=== PATIENT | male | born 1955 | race Caucasian/White ===

== ENCOUNTER 2020-08-16 15:52 | Inpatient (IN) | payer MEDICARE ==
[2020-08-16 16:57] LABS: #Basophils 0.1 thou/uL (0.0-0.2); #Eosinphils 0.3 thou/uL (0.0-0.7); #Lymphocytes 0.8 thou/uL (1.20-3.40); #Monocytes 0.5 thou/uL (0.11-0.59); #Neutrophils 11.2 thou/uL (1.40-6.50); %Basophils 0.5 % (0.0-1.0); %Eosinophils 2.2 % (0.0-10.0); %Lymphocytes 5.9 % (21.0-51.0); %Neutrophils 87.4 % (42.0-75.0); Mean Corpuscular HGB CONC 34.6 g/dL (32.0-36.0); Mean Corpuscular Hemoglobin 32.6 pg (27.0-31.0); Mean Corpuscular Volume 94.1 fL (78.0-98.0); Platelet Count 299 thou/uL (130-400); RBC Distribution Width 12.3 % (11.5-14.5); White Blood Cell (WBC) Count 12.8 thou/uL (4.8-10.8)
[2020-08-16 17:21] LABS: ALT (SGPT) 30 U/L (8-55); AST (SGOT) 26 U/L (5-34); Albumin 4.2 g/dL (3.4-4.8); Alkaline Phosphatase 82 U/L (40-110); Anion Gap 17 mmol/L (10-20); BUN (Urea Nitrogen) 18 mg/dL (8.4-25.7); Bilirubin, Total 1.5 mg/dL (0.2-1.2); Calc. Creatinine Clearance 0 mL/min (70-130); Calcium 8.9 mg/dL (7.8-10.44); Carbon Dioxide 21 mmol/L (23-31); Chloride 107 mmol/L (98-107); Globulin 2.3 g/dL (2.4-3.5); Glucose 163 mg/dL (80-115); Potassium 4.4 mmol/L (3.5-5.1); Protein, Total 6.5 g/dL (5.8-8.1); Sodium 141 mmol/L (136-145)
[2020-08-16] MEDS ORDERED: Dexamethasone 4 MG TAB ONE (20:13)
[2020-08-16] MEDS ORDERED: Dexamethasone 10 MG/ML VIAL ONE (20:17)
[2020-08-16] MEDS ORDERED: cefTRIAXone\\ROCEPHIN 1 GM VIAL ONE (20:33)
[2020-08-16] MEDS ORDERED: Dextrose 50% Abboject 50 ML SYRINGE SLOW IVP PRN (23:32)
[2020-08-16] MEDS ORDERED: Dextrose 5% in Water 1,000 ML IV PRN (23:32)
[2020-08-17 02:21] VITALS: BMI 37.8
[2020-08-17 05:16] LABS: SARS-CoV-2 PCR by NAA Not Detected (NotDetected)
[2020-08-17] MEDS ORDERED: HumaLOG 300 UNITS/3 ML VIAL ONE (07:48)
[2020-08-17] MEDS: HumaLOG 300 UNITS/3 ML VIAL SC PRN ×4 (07:50→20:14)
[2020-08-17] MEDS ORDERED: Alogliptin 6.25 MG TAB PO SCH (09:00)
[2020-08-17] MEDS ORDERED: methylPREDNISolone Sod Succ 40 MG VIAL ONE (10:01)
[2020-08-17] MEDS ORDERED: Enoxaparin Sodium 40 MG/0.4 ML SYRINGE ONE (10:01)
[2020-08-17] MEDS: Enoxaparin Sodium 40 MG/0.4 ML SYRINGE SC SCH (10:09)
[2020-08-17] MEDS: Doxycycline 100 MG CAP PO SCH ×2 (10:09→20:07)
[2020-08-17] MEDS: methylPREDNISolone Sod Succ 40 MG VIAL IVP SCH ×3 (10:14→20:05)
[2020-08-17] MEDS ORDERED: Meclizine HCl 25 MG TAB PO PRN (17:17)
[2020-08-17] MEDS: Mometasone 200 MCG/Formoterol 5 MCG 120 PUFF INHALER INH SCH (17:48)
[2020-08-17] MEDS ORDERED: cefTRIAXone\\ROCEPHIN 1 GM in Sodium Chloride 0.9% 100 ML IVPB SCH (20:00)
[2020-08-17] MEDS: Benzonatate 100 MG CAP PO PRN (20:06)
[2020-08-17] MEDS: Atorvastatin Calcium 20 MG TAB PO SCH (20:07)
[2020-08-17] MEDS: Montelukast Sodium 10 mg Tablet PO SCH (20:07)
[2020-08-17] MEDS: guaiFENesin/DM ER PO SCH (20:07)
[2020-08-18] MEDS: HumaLOG 300 UNITS/3 ML VIAL SC PRN ×4 (04:45→20:26)
[2020-08-18] MEDS: Mometasone 200 MCG/Formoterol 5 MCG 120 PUFF INHALER INH SCH ×2 (07:50→18:37)
[2020-08-18] MEDS: Enoxaparin Sodium 40 MG/0.4 ML SYRINGE SC SCH (09:11)
[2020-08-18] MEDS: Doxycycline 100 MG CAP PO SCH ×2 (09:11→19:53)
[2020-08-18] MEDS: Alogliptin 6.25 MG TAB PO SCH (09:11)
[2020-08-18] MEDS: guaiFENesin/DM ER PO SCH ×2 (09:12→19:53)
[2020-08-18] MEDS: predniSONE 20 MG TAB PO SCH ×2 (10:05→19:53)
[2020-08-18] MEDS ORDERED: Sodium Chloride Nasal 15 GM TUBE EA NARE PRN (11:26)
[2020-08-18] MEDS: Benzonatate 100 MG CAP PO PRN (18:36)
[2020-08-18] MEDS: Atorvastatin Calcium 20 MG TAB PO SCH (19:53)
[2020-08-18] MEDS: Montelukast Sodium 10 mg Tablet PO SCH (19:53)
[2020-08-19] MEDS: HumaLOG 300 UNITS/3 ML VIAL SC PRN ×3 (05:22→16:54)
[2020-08-19] MEDS: Mometasone 200 MCG/Formoterol 5 MCG 120 PUFF INHALER INH SCH ×2 (06:35→19:29)
[2020-08-19] MEDS: predniSONE 20 MG TAB PO SCH ×2 (08:04→20:36)
[2020-08-19] MEDS: guaiFENesin/DM ER PO SCH ×2 (08:04→20:36)
[2020-08-19] MEDS: Alogliptin 6.25 MG TAB PO SCH (08:04)
[2020-08-19] MEDS: Doxycycline 100 MG CAP PO SCH ×2 (08:04→20:36)
[2020-08-19] MEDS: Enoxaparin Sodium 40 MG/0.4 ML SYRINGE SC SCH (08:05)
[2020-08-19] MEDS: Benzonatate 100 MG CAP PO PRN ×2 (16:54→20:55)
[2020-08-19] MEDS: Atorvastatin Calcium 20 MG TAB PO SCH (20:36)
[2020-08-19] MEDS: Montelukast Sodium 10 mg Tablet PO SCH (20:36)
[2020-08-20] MEDS: Benzonatate 100 MG CAP PO PRN ×3 (06:17→22:13)
[2020-08-20] MEDS: HumaLOG 300 UNITS/3 ML VIAL SC PRN ×2 (06:19→17:04)
[2020-08-20] MEDS: Mometasone 200 MCG/Formoterol 5 MCG 120 PUFF INHALER INH SCH ×2 (06:45→18:35)
[2020-08-20 07:08] LABS: #Eosinphils 0.1 thou/uL (0.0-0.7); #Lymphocytes 1.6 thou/uL (1.20-3.40); #Monocytes 1.3 thou/uL (0.11-0.59); #Neutrophils 12.5 thou/uL (1.40-6.50); %Basophils 0.2 % (0.0-1.0); %Eosinophils 0.8 % (0.0-10.0); %Lymphocytes 10.3 % (21.0-51.0); %Monocytes 8.4 % (0.0-10.0); %Neutrophils 80.4 % (42.0-75.0); Hemoglobin 15.9 g/dL (14.0-18.0); Mean Corpuscular Hemoglobin 33.7 pg (27.0-31.0); Mean Corpuscular Volume 96.1 fL (78.0-98.0); Mean Platelet Volume 7.3 fL (7.4-10.4); Platelet Count 262 thou/uL (130-400); Red Blood Cell (RBC) Count 4.74 mill/uL (4.70-6.10); White Blood Cell (WBC) Count 15.5 thou/uL (4.8-10.8)
[2020-08-20 07:30] LABS: Anion Gap 15 mmol/L (10-20); BUN (Urea Nitrogen) 23 mg/dL (8.4-25.7); Calc. Creatinine Clearance 102 mL/min (70-130); Calcium 9.1 mg/dL (7.8-10.44); Carbon Dioxide 24 mmol/L (23-31); Chloride 102 mmol/L (98-107); Glucose 201 mg/dL (80-115); Potassium 3.8 mmol/L (3.5-5.1); Sodium 137 mmol/L (136-145)
[2020-08-20] MEDS: Doxycycline 100 MG CAP PO SCH ×2 (08:58→20:25)
[2020-08-20] MEDS: Enoxaparin Sodium 40 MG/0.4 ML SYRINGE SC SCH (08:58)
[2020-08-20] MEDS: predniSONE 20 MG TAB PO SCH ×2 (08:59→20:22)
[2020-08-20] MEDS: guaiFENesin/DM ER PO SCH ×2 (08:59→20:22)
[2020-08-20] MEDS: Alogliptin 6.25 MG TAB PO SCH (08:59)
[2020-08-20] MEDS: Atorvastatin Calcium 20 MG TAB PO SCH (20:21)
[2020-08-20] MEDS: Montelukast Sodium 10 mg Tablet PO SCH (20:21)
[2020-08-20 20:44] VITALS: TEMP 97.7
[2020-08-21] MEDS: HumaLOG 300 UNITS/3 ML VIAL SC PRN ×2 (06:03→13:15)
[2020-08-21] MEDS: Benzonatate 100 MG CAP PO PRN (06:05)
[2020-08-21] MEDS: Mometasone 200 MCG/Formoterol 5 MCG 120 PUFF INHALER INH SCH (07:36)
[2020-08-21 07:43] VITALS: BP 119/67
[2020-08-21] MEDS: Alogliptin 6.25 MG TAB PO SCH (08:44)
[2020-08-21] MEDS: predniSONE 20 MG TAB PO SCH (08:44)
[2020-08-21] MEDS: Enoxaparin Sodium 40 MG/0.4 ML SYRINGE SC SCH (08:44)
[2020-08-21] MEDS: guaiFENesin/DM ER PO SCH (08:44)
[2020-08-21] MEDS: Doxycycline 100 MG CAP PO SCH (08:44)
[2020-08-21 10:17] LABS: Hemoglobin 15.7 g/dL (14.0-18.0); Mean Corpuscular HGB CONC 34.6 g/dL (32.0-36.0); Mean Corpuscular Hemoglobin 32.6 pg (27.0-31.0); Mean Corpuscular Volume 94.3 fL (78.0-98.0); Mean Platelet Volume 7.5 fL (7.4-10.4); Platelet Count 247 thou/uL (130-400); Red Blood Cell (RBC) Count 4.82 mill/uL (4.70-6.10); White Blood Cell (WBC) Count 15.1 thou/uL (4.8-10.8)
== END 2020-08-21 15:06 | disposition home or self-care (01) | DRG 189 ==
LOC: ERS 15:52 → ERHOLD 20:55 → T4-A 08-17 13:11 → OBSVTOIN 08-17 17:08
PROVIDERS: ADMIT Internal Medicine; ATTEND Internal Medicine
DX: J96.01 Acute respiratory failure with hypoxia (principal); J44.1 Chronic obstructive pulmonary disease with (acute) exacerbation; G47.33 Obstructive sleep apnea (adult) (pediatric); E11.9 Type 2 diabetes mellitus without complications; Z20.822 Contact with and (suspected) exposure to COVID-19; E78.00 Pure hypercholesterolemia, unspecified; M19.90 Unspecified osteoarthritis, unspecified site; F41.9 Anxiety disorder, unspecified; E78.5 Hyperlipidemia, unspecified; R06.89 Other abnormalities of breathing; Z87.891 Personal history of nicotine dependence; Z88.1 Allergy status to other antibiotic agents; Z79.84 Long term (current) use of oral hypoglycemic drugs; Z79.52 Long term (current) use of systemic steroids; Z79.899 Other long term (current) drug therapy
CPT/HCPCS: 36415; 36416; 71045; 80048; 80053; 83880; 84484; 85025; 85027; 87040; 87635; 93005; 94640; 94660; 96372; 96374; 96375; 96376; G0378; J0696; J1100; J1650; J1815; J2920; J3490; J7512; J7620; J8540; U0003; U0005

== ENCOUNTER 2020-10-18 10:17 | Outpatient (CLI) | payer MEDICARE | END 2020-10-18 10:18 | disposition home or self-care (01) | LOC: BICMRI 10:17 | PROVIDERS: ATTEND Orthopaedic Surgery | DX: S83.241A Other tear of medial meniscus, current injury, right knee, initial encounter (principal); M94.261 Chondromalacia, right knee; M71.21 Synovial cyst of popliteal space [Baker], right knee ==

== ENCOUNTER 2020-10-27 11:25 | Emergency (ER) | payer MEDICARE ==
[2020-10-27 12:07] LABS: #Basophils 0.1 thou/uL (0.0-0.2); #Eosinphils 0.7 thou/uL (0.0-0.7); #Lymphocytes 1.4 thou/uL (1.20-3.40); #Monocytes 0.9 thou/uL (0.11-0.59); #Neutrophils 8.3 thou/uL (1.40-6.50); %Lymphocytes 12.6 % (21.0-51.0); %Monocytes 7.9 % (0.0-10.0); %Neutrophils 72.6 % (42.0-75.0); Hemoglobin 15.5 g/dL (14.0-18.0); Mean Corpuscular HGB CONC 33.5 g/dL (32.0-36.0); Mean Corpuscular Hemoglobin 32.2 pg (27.0-31.0); Mean Corpuscular Volume 96.2 fL (78.0-98.0); Mean Platelet Volume 7.4 fL (7.4-10.4); Platelet Count 259 thou/uL (130-400); RBC Distribution Width 11.5 % (11.5-14.5); White Blood Cell (WBC) Count 11.4 thou/uL (4.8-10.8)
[2020-10-27 12:27] LABS: ALT (SGPT) 21 U/L (8-55); AST (SGOT) 17 U/L (5-34); Albumin 4.1 g/dL (3.4-4.8); Alkaline Phosphatase 89 U/L (40-110); Anion Gap 14 mmol/L (10-20); BUN (Urea Nitrogen) 11 mg/dL (8.4-25.7); Bilirubin, Total 1.1 mg/dL (0.2-1.2); Calc. Creatinine Clearance 0 mL/min (70-130); Calcium 9.3 mg/dL (7.8-10.44); Carbon Dioxide 22 mmol/L (23-31); Chloride 106 mmol/L (98-107); Globulin 2.6 g/dL (2.4-3.5); Glucose 143 mg/dL (80-115); Potassium 4.1 mmol/L (3.5-5.1); Protein, Total 6.7 g/dL (5.8-8.1); Sodium 138 mmol/L (136-145)
[2020-10-27] MEDS ORDERED: predniSONE 20 MG TAB ONE (12:55)
[2020-10-27 18:21] LABS: SARS-CoV-2 PCR by NAA Not Detected (NotDetected)
== END 2020-10-27 14:05 | disposition home or self-care (01) ==
LOC: ERS 11:25
DX: J44.1 Chronic obstructive pulmonary disease with (acute) exacerbation (principal); Z20.822 Contact with and (suspected) exposure to COVID-19; E11.9 Type 2 diabetes mellitus without complications; E78.5 Hyperlipidemia, unspecified; Z87.891 Personal history of nicotine dependence
CPT/HCPCS: 71045; 80053; 84484; 85025; 93005; 94640; 99285; U0003; U0005; 87635; J7512; J7620

== ENCOUNTER 2021-01-02 22:52 | Emergency (ER) | payer MEDICARE ==
[2021-01-02] MEDS ORDERED: EPINEPHrine 1 MG/10 ML Abboject SYRINGE ONE (22:55)
[2021-01-02] MEDS ORDERED: Sodium Bicarb 50 MEQ/50 ML Abboject 8.4% SYRINGE ONE (22:55)
== END 2021-01-02 23:03 | disposition expired ==
LOC: ERS 22:52
DX: I46.9 Cardiac arrest, cause unspecified (principal); J44.9 Chronic obstructive pulmonary disease, unspecified; E11.9 Type 2 diabetes mellitus without complications; E78.5 Hyperlipidemia, unspecified; Z87.891 Personal history of nicotine dependence
CPT/HCPCS: 31500; 92950; 96374; 96375; J0171